=== PATIENT | female | born 1990 | race Caucasian/White ===

== ENCOUNTER 2016-03-05 15:03 | Emergency (ER) | payer OTHER ==
[2016-03-05 15:44] LABS: Bilirubin Negative (Negative); Blood, Urine Negative (Negative); Glucose, Urine (Dipstick) Negative (Negative); Ketone, Urine Negative (Negative); Nitrite Negative (Negative); Protein, Urine (Dipstick) Negative (Neg-Trace); Urobilinogen 0.2 mg/dL (0.2-1.0)
[2016-03-05 15:45] LABS: Bacteria/HPF 2+ HPF (None Seen); RBC/HPF 0-3 HPF (0-3)
[2016-03-05] MEDS ORDERED: Azithromycin 250 MG TAB ONE (16:06)
[2016-03-05] MEDS ORDERED: cefTRIAXone\\ROCEPHIN 500 MG VIAL ONE (16:06)
[2016-03-05] MEDS ORDERED: Lidocaine 1% 20 ML MDV ONE (16:06)
--- NOTE | 2016-03-05 16:33 | ERRECORD ---
[facility] EMERGENCY RECORD HPI ABDOMINAL PAIN (15:24 [facility]) CHIEF COMPLAINTS: Patient presents for evaluation of abdominal pain. HISTORIAN: History provided by patient, 25F presents with complaints of suprapubic pain. She is an extremely poor historian. She states that she last had a menstrual period in December, and had a positive home test in January. She reports a history of irregular menstrual cycle. She states she began vaginal bleeding on Saturday, and on Saturday reports that she saw her sister, an OBGYN in [place], who performed a speculum exam on her at home, not in a hospital. She continued bleeding throughout the weekend, but stopped bleeding today. She reports the bleeding was heavy. Today she endorses non-lateralizing suprapubic pain, denies vaginal discharge. LOCATION FEMALE: Symptoms are localized, most severe in the suprapubic region. QUALITY: Pain is sharp in nature, described as stabbing. TIME COURSE: Sudden onset of symptoms. ASSOCIATED WITH FEMALE: Associated with vaginal bleeding. RELIEVED BY: Patient's condition relieved by over the counter medications. EXACERBATED BY: Patient's condition exacerbated by nothing. RISK FACTORS FEMALE: Ectopic risk factors:. ROS (15:27 [facility]) CONSTITUTIONAL: Negative constitutional review of systems, Historian denies chills, denies fever. EYES: Negative eye review of systems, Historian denies eye pain, denies vision changes. ENT: Negative ears, nose, throat review of systems, Historian denies rhinorrhea, denies sore throat, denies voice changes. CARDIOVASCULAR: Negative cardiovascular review of systems, Historian denies chest pain, denies palpitations. RESPIRATORY: Negative respiratory review of systems, Historian denies cough, denies shortness of breath. GI: Historian reports abdominal pain, midline suprapubic pain, no RLQ tenderness. GENITOURINARY FEMALE: Negative genitourinary review of systems, Historian denies dysuria, denies frequency. MUSCULOSKELETAL: Negative musculoskeletal review of systems, Historian denies back pain, denies fall, denies injury. SKIN: Negative skin review of systems, Historian denies rash, denies skin changes. NEUROLOGIC: Negative neurologic review of systems, Historian denies headache, denies mental status changes, denies paralysis, denies paresthesias, denies sensory changes. HEMO/LYMPHATIC: Normal hematologic/lymphatic system review, Historian denies abnormal blood clotting. ALLERGIC/IMMUNOLOGIC: Normal allergy/immunologic system review, Historian denies frequent infections. PAST MEDICAL HISTORY (15:44 [facility]) &a-1R&a+25V*p+0X*o2286M*c202B*c15G*c2P*p-0X&a-25V&a+1R Name: Myrna Pfeiffer : 1990 F25 MedRec: [id number] AcctNum: [id number] Prepared: SatMar 05, 2016 16:31 by Interface Page 1 of 4 pMD [facility] EMERGENCY RECORD MEDICAL HISTORY: No past medical history. FEMALE SURGICAL HISTORY: Patient has no surgical history. PSYCHIATRIC HISTORY: No previous psychiatric history. SOCIAL HISTORY: Patient denies alcohol use, Patient denies drug use, Patient has no smoking history, Lives at home, with family. KNOWN ALLERGIES hydrocodone (Unconfirmed): Reaction: itch, nausea,vomiting naproxen (Unconfirmed): Reaction: itch, vomiting tramadol (Unconfirmed): Reaction: itching, vomiting CURRENT MEDICATIONS No recorded medications VITAL SIGNS VITAL SIGNS: BP: 149/101, Pulse: 78, Resp: 16 (Non-Labored), Pain: 8, O2 sat: 98 on Room Air, Time: 03/05/2016 15:11. (15:11 [facility]) Pulse: 89, Temp: 98.1 (Oral), Time: 03/05/2016 15:12. (15:12 [facility]) BP: 128/78, Pulse: 84, Resp: 18, Temp: 98.1 (Oral), Pain: 3, O2 sat: 99 on Room Air, Time: 03/05/2016 16:20. (16:20 [facility]) PHYSICAL EXAM CONSTITUTIONAL: Vital signs reviewed, Patient afebrile, Pulse normal, Blood pressure normal, Respiratory rate normal, Patient appears non toxic, Patient appears pain free, Patient alert and oriented to person, place and time. (15:27 [facility]) HEAD: Head exam normal, Head exam included findings of head atraumatic, normocephalic. (15:27 [facility]) EYES: Eye exam normal, Eye exam included findings of eyelids normal to inspection, Pupils equally round and reactive to light, Extraocular muscles intact, no nystagmus. (15:27 [facility]) ENT: ENT exam normal, Ear exam normal, external ear normal, tympanic membranes normal, no bleeding, Pharynx exam normal, Uvula exam normal, Tonsil exam normal, Mouth exam normal, mucous membranes moist, teeth normal. (15:27 [facility]) NECK: Neck exam normal, Neck exam included findings of normal range of motion, Trachea midline, no meningeal signs, no cervical adenopathy, no tenderness. (15:27 [facility]) RESPIRATORY CHEST: Respiratory and chest exam normal, Respiratory exam included findings of no respiratory distress, Breath sounds clear. (15:27 [facility]) CARDIOVASCULAR: Cardiovascular assessment normal, Cardiovascular exam included findings of heart rate regular rate and rhythm, Heart sounds normal. (15:27 [facility]) ABDOMEN FEMALE: Abdominal exam included findings of abdomen nontender, mildline suprapubic pain. (15:27 [facility]) PELVIC: Speculum exam abnormal, external os closed, white discharge present, malodorous, Cervicitis, Urethral exam normal, Exam findings include complaint of lower abdominal pain, no vaginal bleeding &a-1R&a+25V*p+0X*[id number]*c202B*c15G*c2P*p-0X&a-25V&a+1R Name: Myrna Pfeiffer : 1990 F25 MedRec: [id number] AcctNum: [id number] Prepared: SatMar 05, 2016 16:31 by Interface Page 2 of 4 pMD [facility] EMERGENCY RECORD present. (16:27 [facility]) BACK: Back exam normal, Back exam included findings of normal inspection, range of motion normal, no tenderness. (15:27 [facility]) UPPER EXTREMITY: Upper extremity exam normal, Upper extremity exam included findings of inspection normal, Range of motion normal, Motor strength normal, Sensation intact, Radial pulse normal. (15:27 [facility]) LOWER EXTREMITY: Lower extremity exam normal, Lower extremity exam included findings of inspection normal, Range of motion normal, Motor strength normal, Sensation intact, Posterior tibial pulse normal, Pedal pulse normal. (15:27 [facility]) NEURO: Neuro exam normal, Neuro exam findings include patient oriented to person, place and time, Speech normal, Gait normal, Cranial nerves intact, no focal motor deficits, no focal sensory deficits. (15:27 [facility]) SKIN: Skin exam normal, Skin exam included findings of skin warm, dry, and normal in color, no rash. (15:27 [facility]) PSYCHIATRIC: Psychiatric exam normal, Normal affect. (15:27 [facility]) MEDICATION ADMINISTRATION SUMMARY Drug Name: cefTRIAXone injection, Dose Ordered: 250 mg, Route: Intramuscular, Status: Given, Time: 16:11 03/05/2016, Drug Name: azithromycin oral, Dose Ordered: 1 g, Route: Oral, Status: Given, Time: 16:09 03/05/2016, Detailed record available in Medication Service section. DOCTOR NOTES (16:27 [facility]) TEXT: Patient presented reporting possible completed . Her history was difficult to determine, but her physical exam was more concerning for cervicitis than ectopic . Urine HCG was negative, and I have very little suspicion for ectopic or other obstetric issue, and believe her symptoms are secondary to cervicitis. She could not provide the name of her sister that is her OBGYN, where she practiced, or her phone number. PATIENT STATUS: Patient has improved since arrival to emergency department. PATIENT PLAN: The patient will be discharged, The patient will follow up with primary care physician. PROBLEM LIST No recorded problems DIAGNOSIS (15:52 [facility]) FINAL: PRIMARY: Acute cervicitis. PRESCRIPTION (15:51 [facility]) Flagyl: TABLET : 500 mg : ORAL : Quantity: 500 Unit: mg Route: ORAL Schedule: 2 times a day Dispense: 14 May substitute. Refills: No Refills . &a-1R&a+25V*p+0X*o9334P*c202B*c15G*c2P*p-0X&a-25V&a+1R Name: Myrna Pfeiffer : 1990 F25 MedRec: [id number] AcctNum: [id number] Prepared: SatMar 05, 2016 16:31 by Interface Page 3 of 4 pMD [facility] EMERGENCY RECORD NOTES: No refills. DISPOSITION PATIENT: Disposition Type: Discharge, Disposition: *Discharge Home. (15:52 [facility]) Patient left the department. (16:29 [facility]) Means: JUSTIN=DAVID [place], May EllyJAC=MD Martha, Yehuda OC=[place]BERTO Omalley, [facility] &a-1R&a+25V*p+0X*p8785Q*c202B*c15G*c2P*p-0X&a-25V&a+1R Name: Myrna Pfeiffer : 1990 F25 MedRec: [id number] AcctNum: [id number] Prepared: SatMar 05, 2016 16:31 by Interface Page 4 of 4 pMD [facility]
== END 2016-03-05 16:27 | disposition home or self-care (01) ==
LOC: BURERS 15:03
DX: N72 Inflammatory disease of cervix uteri (principal)
CPT/HCPCS: 81003; 81015; 81025; 87480; 87491; 87510; 87591; 87660; 96372; J0696; J2001